=== PATIENT | male | born 1990 | race Caucasian/White ===

== ENCOUNTER 2017-04-21 03:18 | Emergency (ER) | payer OTHER ==
[~2017-04-21] VITALS: Ht 172.7 cm; Wt 63.5 kg
--- NOTE | 2017-04-21 03:40 | NUR ---
TO BED 1 A 27 YO MALE PT BIB FRIEND, PT C/O RIGHT HAND PAIN S/P TV [place] ON IT X 3 HOURS. INTACT DISTAL CMS. NAD NOTED. VSS. COMFORT MEASURES RENDERED.
--- NOTE | 2017-04-21 04:28 | NUR ---
Patient discharged to home in stable condition. Written and verbal after care instructions given. Patient verbalizes understanding of instruction. Patient is ambulatory with steady gait, accompanied by friend. No further complaints.
[2017-04-21 04:29] VITALS: BP 124/68
== END 2017-04-21 04:30 | disposition home or self-care (01) ==
LOC: ER 03:21
DX: S62.396A Other fracture of fifth metacarpal bone, right hand, initial encounter for closed fracture (principal); W20.8XXA Other cause of strike by thrown, projected or falling object, initial encounter; Y93.89 Activity, other specified; Y92.89 Other specified places as the place of occurrence of the external cause; Y99.8 Other external cause status
CPT/HCPCS: 29125; 73130; 99284; A4606; Z7610

== ENCOUNTER 2018-03-15 20:03 | Emergency (ER) | payer OTHER ==
[~2018-03-15] VITALS: Ht 172.7 cm; Wt 62.4 kg
--- NOTE | 2018-03-15 21:01 | NUR ---
PATIENT AMBULATORY TO ER BED 13. BIBSELF FROM HOME C/O N/V X 1 DAY WITH DIZZINESS. PT PLACED ON [employer]. VSS/RESP EVEN UNLABORED/NAD NOTED/SKIN WARM AND DRY/ AFEBRILE/AOX4. AWAITNG MD VIEYRA.
--- NOTE | 2018-03-15 21:25 | NUR ---
LAB AT BEDSIDE TO DRAW.
[2018-03-15 21:29] LABS: BASOPHILS % (AUTO) 0.5 % (0.0-2.0); EOSINOPHILS % (AUTO) 0.1 % (0.0-6.0); HEMATOCRIT 48 % (39-51); HEMOGLOBIN 16.4 g/dL (13.5-17.5); LYMPHOCYTES # (AUTO) 1.1 /CMM (0.8-4.8); MEAN CORPUSCULAR HGB CONC 34 g/dl (31.0-36.0); MEAN CORPUSCULAR VOLUME 88 fL (80-96); MONOCYTES # (AUTO) 0.5 /CMM (0.1-1.30); MONOCYTES % (AUTO) 6.3 % (2.0-12.0); NEUTROPHILS % (AUTO) 80.1 % (43.0-81.0); PLATELET COUNT (AUTO) 263 /CMM (150-450); RED BLOOD CELL COUNT(AUTO) 5.47 MIL/uL (4.5-6.0); WHITE BLOOD COUNT (AUTO) 8.6 K/uL (4.3-11.0)
[2018-03-15] MEDS ORDERED: IV NS 0.9% 1,000 ML BAG IV ONE ×3 (21:30→23:00)
[2018-03-15] MEDS ORDERED: FAMOTIDINE/PF INJ 20 MG/2 ML VIAL IV ONE ×2 (21:30→21:56)
[2018-03-15] MEDS ORDERED: ONDANSETRON HCL/PF 4 MG/2 ML VIAL IVP ONE (21:30)
[2018-03-15 21:45] LABS: CALCIUM, SERUM 9.3 mg/dL (8.5-10.1); CREATININE 1.1 mg/dL (0.6-1.3); POTASSIUM 3.5 mmol/L (3.5-5.1)
[2018-03-15 21:50] LABS: ALBUMIN 4.7 g/dL (3.4-5.0); BILIRUBIN,DIRECT 0.2 mg/dL (0.0-0.2); BILIRUBIN,TOTAL 1.1 mg/dL (0.2-1.0)
[2018-03-15] MEDS ORDERED: ONDANSETRON HCL/PF 4 MG/2 ML VIAL ONE ×2 (21:56→22:34)
--- NOTE | 2018-03-15 22:00 | NUR ---
18G IV TO R AC X 1 ATTEMPT USING ASEPTIC TECH. IV FLUSHES EASILY WITH NS, NO S/S INFILTRATION NOTED AT THIS TIME.
[2018-03-15] MEDS ORDERED: ONDANSETRON HCL/PF - ER 4 MG/2 ML VIAL IV ONE (22:30)
[2018-03-15] MEDS ORDERED: PROCHLORPERAZINE EDISYLATE 10 MG/2 ML VIAL ONE ×2 (22:53→22:59)
[2018-03-15] MEDS ORDERED: PROCHLORPERAZINE EDISYLATE 10 MG/2 ML VIAL IVP ONE (23:00)
[2018-03-15] MEDS ORDERED: diphenhydrAMINE HCL 50 MG/ML VIAL IV ONE (23:00)
[2018-03-15] MEDS ORDERED: diphenhydrAMINE HCL 50 MG/ML VIAL ONE (23:00)
--- NOTE | 2018-03-15 23:00 | NUR ---
PA AT BEDSIDE SPEAKING WITH PATIENT.
--- NOTE | 2018-03-15 23:02 | NUR ---
VO FROM DR KHANNA TO ADM COMPAZINE 5 MG IV. CHANGED ORDER TO 10MG IV.
--- NOTE | 2018-03-15 23:57 | NUR ---
IV removed. Catheter intact and site benign. Pressure and 4x4 applied to site. No bleeding noted. Patient discharged with girlfriend to home in stable condition. Written and verbal after care instructions given, patient instructed not to drive. Patient verbalizes understanding of instruction.
--- NOTE | 2018-03-15 23:58 | NUR ---
PATIENT AMBULATORY WITH STEADY GAIT.
[2018-03-15 23:59] VITALS: BP 129/63
== END 2018-03-16 00:01 | disposition home or self-care (01) ==
LOC: ER 20:07
DX: R11.2 Nausea with vomiting, unspecified (principal)
CPT/HCPCS: 36415; 80048; 80076; 83690; 85025; 96361; 96374; 96375; 96376; 99285; J0780; J1200; J2405; J3490; J7030 ×3; A4606; Z7610